=== PATIENT | female | born 1985 | race American Indian/Alaskan Native ===

== ENCOUNTER 2017-04-06 08:30 | Emergency (ER) | payer MEDICAID ==
[2017-04-06 09:00] VITALS: BP 253/168
[2017-04-06 10:19] LABS: Bilirubin,Urine NEG (Negative); Blood,Urine SM (Negative); Ketones,Urine TR mg/dL (Negative); Leukocyte Esterase,Urine NEG (Negative); Nitrite,Urine NEG (Negative); Urobilinogen,Urine < 2.0 mg/dL (<2.0)
[2017-04-06 10:20] LABS: Protein,Urine >500 mg/dL (Negative)
== END 2017-04-06 10:21 | disposition left against medical advice (07) ==
LOC: ED 08:30
DX: R10.9 Unspecified abdominal pain (principal); Z53.21 Procedure and treatment not carried out due to patient leaving prior to being seen by health care provider
CPT/HCPCS: 81001

== ENCOUNTER 2017-04-13 21:37 | Inpatient (IN) | payer MEDICAID ==
[2017-04-13 22:39] LABS: Basophils % (Auto) 0.2 % (0.0-1.8); Eosinophils % (Auto) 0.3 % (0.0-4.3); Hemoglobin 11.4 gm/dl (10.1-14.3); Mean Corpuscular HGB Conc 33 % (30-34); Mean Corpuscular Volume 73 fl (79-97); Platelet Count 168 K/mm3 (140-440); Red Blood Count 4.79 M/mm3 (3.65-5.03); Red Cell Distribution Width 18.6 % (13.2-15.2); White Blood Count 11.6 K/mm3 (4.5-11.0)
[2017-04-13 22:43] LABS: Mean Corpuscular Hemoglobin 24 pg (28-32)
[2017-04-13] MEDS ORDERED: NACL 0.9% 1000 ML 1,000 ML IV ONE (23:11)
[2017-04-13] MEDS ORDERED: MORPHINE IV ONE (23:11)
[2017-04-13] MEDS ORDERED: ZOFRAN IV ONE (23:11)
[2017-04-13 23:18] LABS: Albumin 3.7 g/dL (3.9-5); Albumin/Globulin Ratio 1.5 %; Bilirubin,Total 0.8 mg/dL (0.1-1.2); Calcium 8.7 mg/dL (8.4-10.2); Chloride 92.6 mmol/L (98-107); Potassium 3.1 mmol/L (3.6-5.0); Total Protein 6.2 g/dL (6.3-8.2)
[2017-04-14] MEDS ORDERED: LIDOCAINE VISCOUS 2% PO ONE (00:37)
[2017-04-14] MEDS ORDERED: MILK OF MAGNESIA PO ONE (00:37)
[2017-04-14] MEDS ORDERED: NACL 0.9% 1000 ML 1,000 ML IV ONE (02:45)
[2017-04-14] MEDS ORDERED: DILAUDID IV ONE (02:45)
--- NOTE | 2017-04-14 02:56 | Emergency Department Report ---
ED Abdominal Pain HPI - General Chief Complaint: Abdominal Pain Stated Complaint: ABDOMINAL PAIN Time Seen by Provider: 04/14/17 02:32 Source: patient, EMS Mode of arrival: Stretcher Limitations: No Limitations - History of Present Illness Initial Comments: 31 yo female who comes in today due to abdominal pain. She states that it has been present times one week. She admits to a history of colitis, and has seen GI in the past. She currently doesn't see GI. She states that the abdominal pain is periumbilical with radiation to the right groin/flank, 02/09, with associated nausea. MD Complaint: abdominal pain, flank pain -: week(s) (1) Location: periumbilical Radiation: RLQ, R flank Severity scale (0 -10): 10 Quality: aching, sharp Consistency: constant Improves With: nothing Worsens With: movement Context: other (none) Associated Symptoms: nausea - Related Data Previous Rx's Medication Instructions Recorded Last Taken Type Carvedilol [Coreg] 12.5 mg PO BID #60 tablet 08/12/15 Unknown Rx Losartan [Cozaar] 100 mg PO QDAY #30 tablet 08/12/15 Unknown Rx Tramadol HCl/Acetaminophen 1 each PO Q8H #30 tablet 08/12/15 Unknown Rx [Ultracet Tablet] hydrALAZINE [Apresoline TAB] 50 mg PO Q8HR #90 tablet 08/12/15 Unknown Rx metroNIDAZOLE [Flagyl] 500 mg PO Q8HR #15 tablet 08/12/15 Unknown Rx Allergies Allergy/AdvReac Type Severity Reaction Status Date / Time No Known Allergies Allergy Unverified 03/04/15 13:40 ED Review of Systems ROS: Stated complaint: ABDOMINAL PAIN Other details as noted in HPI Constitutional: malaise Eyes: denies: eye pain, eye discharge, vision change ENT: denies: ear pain, throat pain Respiratory: denies: cough, shortness of breath, wheezing Cardiovascular: denies: chest pain, palpitations Endocrine: no symptoms reported Gastrointestinal: as per HPI, abdominal pain Genitourinary: denies: urgency, dysuria, discharge Musculoskeletal: denies: back pain, joint swelling, arthralgia Skin: denies: rash, lesions Neurological: denies: headache, weakness, paresthesias Psychiatric: denies: anxiety, depression Hematological/Lymphatic: denies: easy bleeding, easy bruising ED Past Medical Hx - Past Medical History Previous Medical History?: Yes Hx Hypertension: Yes Hx CVA: No Hx Congestive Heart Failure: No Hx Diabetes: No Hx Asthma: Yes Hx COPD: No Additional medical history: colitis - Surgical History Past Surgical History?: Yes Hx Cholecystectomy: Yes (2011) Additional Surgical History: tubal ligation - Social History Smoking Status: Never Smoker Substance Use Type: None - Medications Home Medications: Home Medications Medication Instructions Recorded Confirmed Last Taken Type Carvedilol [Coreg] 12.5 mg PO BID #60 tablet 08/12/15 Unknown Rx Losartan [Cozaar] 100 mg PO QDAY #30 tablet 08/12/15 Unknown Rx Tramadol HCl/Acetaminophen 1 each PO Q8H #30 tablet 08/12/15 Unknown Rx [Ultracet Tablet] hydrALAZINE [Apresoline TAB] 50 mg PO Q8HR #90 tablet 08/12/15 Unknown Rx metroNIDAZOLE [Flagyl] 500 mg PO Q8HR #15 tablet 08/12/15 Unknown Rx ED Physical Exam - General Limitations: No Limitations General appearance: anxious - Head Head exam: Present: atraumatic, normocephalic - Eye Eye exam: Present: normal appearance - ENT ENT exam: Present: mucous membranes moist - Neck Neck exam: Present: normal inspection - Respiratory Respiratory exam: Present: normal lung sounds bilaterally. Absent: respiratory distress - Cardiovascular Cardiovascular Exam: Present: tachycardia - GI/Abdominal GI/Abdominal exam: Present: tenderness (periumbilical, with radiation to her right groin/flank ) - Rectal Rectal exam: Present: deferred - Extremities Exam Extremities exam: Present: normal inspection - Back Exam Back exam: Present: CVA tenderness (R) - Neurological Exam Neurological exam: Present: alert, oriented X3 - Psychiatric Psychiatric exam: Present: agitated, anxious - Skin Skin exam: Present: warm, dry, intact, normal color. Absent: rash ED Course Vital Signs 04/13/17 04/13/17 04/13/17 21:50 22:05 22:16 Temperature 97.4 F L Pulse Rate 123 H Respiratory 20 Rate Blood Pressure 256/162 Blood Pressure 270/179 [Right] O2 Sat by Pulse 99 96 97 Oximetry 04/13/17 04/13/17 04/13/17 22:30 22:46 23:00 Temperature Pulse Rate Respiratory Rate Blood Pressure 256/162 234/161 Blood Pressure [Right] O2 Sat by Pulse 100 100 100 Oximetry 04/13/17 04/13/17 04/13/17 23:16 23:30 23:46 Temperature Pulse Rate Respiratory Rate Blood Pressure Blood Pressure [Right] O2 Sat by Pulse 99 91 95 Oximetry 04/14/17 04/14/17 04/14/17 00:00 00:16 00:30 Temperature Pulse Rate Respiratory Rate Blood Pressure Blood Pressure [Right] O2 Sat by Pulse 93 100 96 Oximetry 04/14/17 04/14/17 04/14/17 00:46 01:00 01:16 Temperature Pulse Rate Respiratory Rate Blood Pressure 254/162 254/162 Blood Pressure [Right] O2 Sat by Pulse 100 99 97 Oximetry 04/14/17 04/14/17 04/14/17 01:30 01:46 02:00 Temperature Pulse Rate Respiratory Rate Blood Pressure 263/172 263/172 267/182 Blood Pressure [Right] O2 Sat by Pulse 96 99 91 Oximetry 04/14/17 04/14/17 04/14/17 03:44 04:02 04:16 Temperature Pulse Rate Respiratory 18 18 Rate Blood Pressure 267/182 Blood Pressure [Right] O2 Sat by Pulse 96 Oximetry 04/14/17 04:20 Temperature Pulse Rate 94 H Respiratory Rate Blood Pressure 267/182 Blood Pressure [Right] O2 Sat by Pulse Oximetry ED Medical Decision Making - Lab Data Result diagrams: 04/13/17 22:29 04/13/17 22:29 - Radiology Data Radiology results: report reviewed Enteritis per radiology. - Medical Decision Making Enteritis Acute renal failure Dehydration Hypokalemia Uncontrolled hypertension - Differential Diagnosis Enteritis, acute renal failure, dehydration, hypokalemia Critical care attestation.: If time is entered above; I have spent that time in minutes in the direct care of this critically ill patient, excluding procedure time. ED Disposition Clinical Impression: Acute renal failure, Dehydration, Enteritis, Hypokalemia, Hypertension Disposition: OP ADMIT IP TO THIS HOSP Is pt being admited?: Yes Does the pt Need Aspirin: No Condition: Stable Instructions: Abdominal Pain (ED), Hypertension (ED) Referrals: PRIMARY CARE, [Primary Care Provider] - 3-5 Days Time of Disposition: 04:54
[2017-04-14] MEDS: KCL 10MEQ/100ML 10 MEQ/100 ML BAG IV SCH ×2 (04:04→05:17)
--- NOTE | 2017-04-14 04:11 | Cat Scan Report ---
FINAL REPORT EXAM: CT ABDOMEN PELVIS WO CON HISTORY: abdominal pain TECHNIQUE: Routine axial imaging was obtained of the abdomen and pelvis without oral or IV contrast. Comparison is made to the study of 08/08/2015. FINDINGS: The lung bases are clear. Pleural fluid is not identified. The gallbladder has been removed. The biliary tree appears normal. The liver, pancreas, spleen, and adrenal glands appear normal. The kidneys show no evidence of stones or hydronephrosis. The bowel loops reveal a localized segment of small bowel in the left side of the pelvis with circumferential mucosal thickening. The bowel loop is not distended. There is no evidence of proximal bowel obstruction. The finding may represent localized enteritis. The appendix appears normal. There is no evidence of free fluid or adenopathy. In the pelvis the uterus and bladder appear normal. The skeletal structures do not show any acute changes. IMPRESSION: Localized segment of ilium in the left side of the pelvis with mucosal thickening. The findings compatible with a localized enteritis. No evidence of bowel obstruction. Cholecystectomy.
[2017-04-14] MEDS ORDERED: APRESOLINE IV ONE ×2 (04:15→04:47)
[2017-04-14 04:32] LABS: Bilirubin,Urine NEG (Negative); Blood,Urine SM (Negative); Ketones,Urine NEG (Negative); Leukocyte Esterase,Urine NEG (Negative); Mucus,Urine FEW /HPF; Nitrite,Urine NEG (Negative); Protein,Urine >500 mg/dL (Negative); Urobilinogen,Urine < 2.0 mg/dL (<2.0)
[2017-04-14] MEDS ORDERED: NORMODYNE 200 MG in D5W 160 ML IV ONE (05:48)
[2017-04-14] MEDS ORDERED: MILK OF MAGNESIA PO PRN (05:49)
[2017-04-14] MEDS ORDERED: DULCOLAX PR PRN (05:49)
[2017-04-14] MEDS ORDERED: TYLENOL PO PRN (05:49)
[2017-04-14] MEDS ORDERED: ZOFRAN IV PRN (05:49)
[2017-04-14] MEDS ORDERED: LEVAQUIN 500MG/100ML 500 MG/100 ML BAG IV ONE (06:00)
[2017-04-14] MEDS ORDERED: LEVAQUIN 500MG/100ML 500 MG/100 ML BAG IV SCH (06:00)
--- NOTE | 2017-04-14 06:03 | History and Physical Report ---
History of Present Illness Date of examination: 04/14/17 History of present illness: 31-year-old woman with a history of hypertension, asthma, colitis comes to emergency room with complaints of abdominal pain that started 1 week ago. Abdominal pain is located in the mid abdomen which she describes as a sharp pain , constant, intensity 7/10, radiating to the back, cannot identify exacerbating or relieving factors. She admits to nausea and vomiting 1 week, no diarrhea. She had menstrual flow to 1 week ago, then had 2 days of vaginal bleed 2 days ago. Review Of Systems: Constitutional: no weight loss Ears, eyes, nose, mouth and throat: no nasal congestion, no nasal discharge, no sinus pressure, blurry vision, diplopia Neck: No neck pain or rigidity. Cardiovascular: No chest pain, palpitations Respiratory: No shortness of breath, cough Gastrointestinal: No hematochezia Genitourinary : no dysuria, frequency , hematuria Musculoskeletal: no muscle ache Integumentary: no rash, no pruritis Neurological: no parathesias, focal weakness Endocrine: no cold or heat intolerance, no polyuria or polydipsia Hematologic/Lymphatic: no easy bruising, no easy bleeding, no gland swelling Allergic/Immunologic: no urticaria, no angioedema. PAST MEDICAL HISTORY:hypertension, asthma, colitis PAST SURGICAL HISTORY: Cholecystectomy, tubal ligation FAMILY HISTORY: Hypertension SOCIAL HISTORY: Denies tobacco, alcohol, drugs Medications and Allergies Allergies Allergy/AdvReac Type Severity Reaction Status Date / Time No Known Allergies Allergy Unverified 03/04/15 13:40 Home Medications Medication Instructions Recorded Confirmed Last Taken Type Carvedilol [Coreg] 12.5 mg PO BID #60 tablet 08/12/15 Unknown Rx Losartan [Cozaar] 100 mg PO QDAY #30 tablet 08/12/15 Unknown Rx Tramadol HCl/Acetaminophen 1 each PO Q8H #30 tablet 08/12/15 Unknown Rx [Ultracet Tablet] hydrALAZINE [Apresoline TAB] 50 mg PO Q8HR #90 tablet 08/12/15 Unknown Rx metroNIDAZOLE [Flagyl] 500 mg PO Q8HR #15 tablet 08/12/15 Unknown Rx Active Meds: Active Medications Acetaminophen (Tylenol) 650 mg PO Q4H PRN PRN Reason: Pain MILD(1-3)/Fever >100.5/RODRÍGUEZ Bisacodyl (Dulcolax) 10 mg [place] QDAY PRN PRN Reason: Constipation unrelieved by MOM Enoxaparin Sodium (Lovenox) 30 mg SUB-Q QDAY GIORGIO Sodium Chloride (Nacl 0.9% 1000 Ml) 1,000 mls @ 200 mls/hr IV ONCE ONE Stop: 04/14/17 09:42 Labetalol HCl 200 mg/ Dextrose 200 mls @ 120 mls/hr IV ONCE.ED ONE; 2 MG/MIN PRN Reason: Protocol Stop: 04/14/17 07:27 Sodium Chloride (Nacl 0.45% 1000 Ml) 1,000 mls @ 75 mls/hr IV DIRECT GIORGIO Levofloxacin/Dextrose (Levaquin 500mg/100ml) 500 mg in 100 mls @ 100 mls/hr IV Q24HR GIORGIO PRN Reason: Protocol Metronidazole (Flagyl 500 Mg/100 Ml) 500 mg in 100 mls @ 100 mls/hr IV Q8HR GI[facility] Magnesium Hydroxide (Milk Of Magnesia) 30 ml PO Q4H PRN PRN Reason: Constipation Morphine Sulfate (Morphine) 2 mg IV Q4H PRN PRN Reason: Pain, Moderate (4-6) Ondansetron HCl (Zofran) 4 mg IV Q8H PRN PRN Reason: N/V unrelieved by Reglan Exam - Physical Exam Narrative exam: Gen. appearance: Patient lying in bed in no acute distress HEENT: Normocephalic/atraumatic, pupils equal round reactive to light, extra occular movement intact, no scleral icterus, no JVD or thyromegaly or nodule, neck is supple, mucous membrane moist, no erythema or exudate Heart: S1-S2, regular rate and rhythm Lungs: Clear to auscultation bilateral breathing comfortable Abdomen: Positive bowel sounds, tender in the mid abdomen, nondistended, no organomegaly Extremities: No edema, cyanosis, clubbing Neuro:: Oriented 3 , cranial nerves II-12 intact, speech, motor intact Skin: No rash, nodules, warm dry - Constitutional Vitals: Temp Pulse Resp BP Pulse Ox 97.4 F L 138 H 18 216/130 96 04/13/17 21:50 04/14/17 05:14 04/14/17 04:16 04/14/17 05:14 04/14/17 05:00 Results - Labs CBC & Chem 7: 04/13/17 22:29 04/13/17 22:29 Labs: Abnormal lab results 04/13/17 04/13/17 04/14/17 Range/Units 22:29 22:29 03:00 WBC 11.6 H (4.5-11.0) K/mm3 MCV 73 L (79-97) fl MCH 24 L (28-32) pg RDW 18.6 H (13.2-15.2) % Lymph % (Auto) 5.5 L (13.4-35.0) % [place] % (Auto) 11.9 H (0.0-7.3) % Lymph # 0.6 L (1.2-5.4) K/mm3 [place] # 1.4 H (0.0-0.8) K/mm3 Seg Neutrophils % 82.1 H (40.0-70.0) % Seg Neutrophils # 9.5 H (1.8-7.7) K/mm3 Sodium 134 L (137-145) mmol/L Potassium 3.1 L (3.6-5.0) mmol/L Chloride 92.6 L (98-107) mmol/L BUN 34 H (7-17) mg/dL Creatinine 3.4 H (0.7-1.2) mg/dL Glucose 109 H (65-100) mg/dL C-Reactive Protein 2.60 H (0.00-1.30) mg/dL Total Protein 6.2 L (6.3-8.2) g/dL Albumin 3.7 L (3.9-5) g/dL - Imaging and Cardiology CT scan - abdomen: report reviewed CT scan - pelvis: report reviewed Assessment and Plan Assessment Hypertensive urgency Acute renal failure secondary to dehydration Enteritis Hypokalemia Asthma history of Colitis Plan Admit medicine Start IV fluids, labetalol drip Repeat potassium, consult critical care Start IV Flagyl, levaquin DVT prophylaxis
[2017-04-14] MEDS: FLAGYL 500 MG/100 ML 500 MG/100 ML BAG IV SCH ×3 (06:29→21:54)
[2017-04-14] MEDS: NACL 0.9% 1000 ML 1,000 ML IV ONE ×2 (06:55→07:16)
[2017-04-14] MEDS: NACL 0.45% 1000 ML 1,000 ML IV SCH (07:10)
[2017-04-14] MEDS ORDERED: APRESOLINE PO SCH ×2 (08:00)
[2017-04-14] MEDS: APRESOLINE PO SCH ×2 (08:45→18:31)
[2017-04-14] MEDS ORDERED: COZAAR PO SCH (10:00)
--- NOTE | 2017-04-14 10:05 | Consultation ---
History of Present Illness - Reason for Consult Consult date: 04/14/17 acute renal failure, hypokalemia - History of Present Illness The patient is a 31-year-old AAF with history significant for Obesity, Hypertension, Asthma and Colitis who came to the emergency room with complaints of abdominal pain that started aboit a week ago. Abdominal pain is located in the epigastric area, which is sharp, constant, intensity 7/10 and radiating to the back. She admit having nausea, vomiting and poor PO intake for the past week. Denies any diarrhea, fever, dizziness, dysuria, hematuria or jaundice. On admission her creatinine was 3.4. Her creatinine was 3.5 on 04/10/17 at [facility]. Her baseline creatinine is likely between 2.5 and 3. She had several admissions at [facility]. Currently she is not followed by any [employer]. Past History Past Medical History: hypertension Medications and Allergies Allergies Allergy/AdvReac Type Severity Reaction Status Date / Time No Known Allergies Allergy Unverified 03/04/15 13:40 Home Medications Medication Instructions Recorded Confirmed Last Taken Type Carvedilol [Coreg] 12.5 mg PO BID #60 tablet 08/12/15 Unknown Rx Losartan [Cozaar] 100 mg PO QDAY #30 tablet 08/12/15 Unknown Rx Tramadol HCl/Acetaminophen 1 each PO Q8H #30 tablet 08/12/15 Unknown Rx [Ultracet Tablet] hydrALAZINE [Apresoline TAB] 50 mg PO Q8HR #90 tablet 08/12/15 Unknown Rx metroNIDAZOLE [Flagyl] 500 mg PO Q8HR #15 tablet 08/12/15 Unknown Rx Active Meds: Active Medications Acetaminophen (Tylenol) 650 mg PO Q4H PRN PRN Reason: Pain MILD(1-3)/Fever >100.5/RODRÍGUEZ Bisacodyl (Dulcolax) 10 mg [place] QDAY PRN PRN Reason: Constipation unrelieved by MOM Carvedilol (Coreg) 12.5 mg PO BID GIORGIO Enoxaparin Sodium (Lovenox) 30 mg SUB-Q QDAY GIORGIO Hydralazine HCl (Apresoline) 100 mg PO Q8H GIORGIO Last Admin: 04/14/17 08:45 Dose: 100 mg Sodium Chloride (Nacl 0.45% 1000 Ml) 1,000 mls @ 75 mls/hr IV DIRECT GIORGIO Last Admin: 04/14/17 07:10 Dose: 75 mls/hr Metronidazole (Flagyl 500 Mg/100 Ml) 500 mg in 100 mls @ 100 mls/hr IV Q8HR [facility] Last Admin: 04/14/17 06:29 Dose: 100 mls/hr Levofloxacin/Dextrose (Levaquin 250mg/50ml) 250 mg in 50 mls @ 50 mls/hr IV Q24HR [facility] PRN Reason: Protocol Magnesium Hydroxide (Milk Of Magnesia) 30 ml PO Q4H PRN PRN Reason: Constipation Morphine Sulfate (Morphine) 2 mg IV Q4H PRN PRN Reason: Pain, Moderate (4-6) Ondansetron HCl (Zofran) 4 mg IV Q8H PRN PRN Reason: N/V unrelieved by Reglan Review of Systems Constitutional: anorexia, fatigue, poor appetite, no weight loss, no weight gain , no fever, no chills, no weakness Ears, nose, mouth and throat: no epistaxis Breasts: deferred Cardiovascular: high blood pressure, no chest pain, no orthopnea, no palpitations, no edema, no syncope, no lightheadedness, no shortness of breath, no leg edema Respiratory: no cough, no hemoptysis, no shortness of breath, no dyspnea on exertion Gastrointestinal: abdominal pain, nausea, vomiting, constipation, no diarrhea, no hematemesis, no BRBPR, no melena Genitourinary Female: no dysuria, no hematuria Rectal: no bleeding Musculoskeletal: no redness of joints, no hot joints Integumentary: no rash, no redness, no wounds, no jaundice Neurological: no paralysis, no weakness, no seizures, no syncope, no confusion, no memory loss, no paralysis Psychiatric: change in appetite Endocrine: no weight change Exam - Vital Signs Vital signs: Vital Signs Temp Pulse Resp BP Pulse Ox 97.4 F L 123 H 20 270/179 99 04/13/17 21:50 04/13/17 21:50 04/13/17 21:50 04/13/17 21:50 04/13/17 21:50 - General Appearance General appearance: well-developed, well-nourished, appears stated age, 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 Absent: tenderness , distended Integumentary: no rash, warm and dry Neurologic: no focal deficit, no asterixis, alert and oriented x3, CN 3-12 intact Musculoskeletal: Present: other (no edema) Psychiatric: mood/affect appropriate, cooperative Results - Lab Results 04/13/17 22:29 04/13/17 22:29 Most recent lab results Calcium 8.7 mg/dL (8.4-10.2) 04/13/17 22:29 Magnesium 1.70 mg/dL (1.7-2.3) 04/14/17 03:00 - Image Kidney/bladder ultrasound: other Assessment and Plan 1. Acute kidney injury: Hemodynamic RAGHAVENDRA in the setting of volume depletion. Received IV fluid boluses. Continue maintenance IV fluids. 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 Monitor renal function. 2. Volume depletion: Continue IV fluids. 3. Hypokalemia: Monitor and replete K. 4. Proteinuria: Urine protein quantification. FADI was negative in october 2016. Will check ANCA. 5. Hypertension.
[2017-04-14] MEDS: MORPHINE IV PRN ×3 (10:28→22:38)
[2017-04-14] MEDS: COREG PO SCH ×2 (11:54→21:53)
[2017-04-14] MEDS: LOVENOX SUB-Q SCH (12:36)
[2017-04-15] MEDS: APRESOLINE PO SCH ×3 (00:11→17:50)
[2017-04-15] MEDS: NACL 0.45% 1000 ML 1,000 ML IV SCH (04:18)
[2017-04-15] MEDS ORDERED: DILAUDID IV ONE (04:40)
[2017-04-15] MEDS: FLAGYL 500 MG/100 ML 500 MG/100 ML BAG IV SCH ×3 (05:49→21:31)
[2017-04-15 06:27] LABS: Basophils % (Auto) 0.5 % (0.0-1.8); Hematocrit 29.8 % (30.3-42.9); Hemoglobin 9.6 gm/dl (10.1-14.3); Mean Corpuscular HGB Conc 32 % (30-34); Mean Corpuscular Volume 74 fl (79-97); Platelet Count 175 K/mm3 (140-440); Red Blood Count 4.01 M/mm3 (3.65-5.03); Red Cell Distribution Width 18.6 % (13.2-15.2); White Blood Count 9.6 K/mm3 (4.5-11.0)
[2017-04-15 06:29] LABS: Mean Corpuscular Hemoglobin 24 pg (28-32)
[2017-04-15 06:49] LABS: Calcium 7.7 mg/dL (8.4-10.2); Chloride 96.9 mmol/L (98-107); Potassium 3.1 mmol/L (3.6-5.0)
--- NOTE | 2017-04-15 08:19 | Progress Note ---
Assessment and Plan 1. Acute kidney injury: Hemodynamic RAGHAVENDRA in the setting of volume depletion. Renal function is improving. Continue maintenance IV fluids. CKD stage 3-4. Monitor renal function. 2. Volume depletion: Continue IV fluids. 3. Hypokalemia: Monitor and replete K. 4. Proteinuria: Urine protein quantification. FADI was negative in october 2016. ANCA ordered. 5. Hypertension: Amlodipine added. Explained that she need outpatient Renal follow up. Subjective Date of service: 04/15/17 Interval history: Patient is feeling better today. Objective - Vital Signs Vital signs: Vital Signs - 12hr 04/14/17 04/14/17 04/14/17 21:53 21:58 23:39 Temperature 98.4 F Pulse Rate 113 H 113 H Respiratory 18 Rate Blood Pressure 167/98 168/104 O2 Sat by Pulse 98 97 Oximetry 04/15/17 07:39 Temperature 97.8 F Pulse Rate 105 H Respiratory 20 Rate Blood Pressure 179/113 O2 Sat by Pulse 97 Oximetry - General Appearance General appearance: well-developed, well-nourished, appears stated age, obese, other (no distress) EENT: ATNC, PERRL, mucous membranes dry, hearing intact, vision intact Neck: no JVD, supple Respiratory: Present: Clear to Ascultation Cardiology: regular, S1S2, no murmurs Gastrointestinal: normoactive bowel sounds, no tenderness, no distended, obese Integumentary: no rash, warm and dry Neurologic: no focal deficit, no asterixis, alert and oriented x3 Musculoskeletal: other (no edema) Psychiatric: mood/affect appropriate, cooperative - Lab 04/15/17 05:18 04/15/17 05:18 Most recent lab results Calcium 7.7 mg/dL (8.4-10.2) L 04/15/17 05:18 Magnesium 1.70 mg/dL (1.7-2.3) 04/14/17 03:00
[2017-04-15] MEDS ORDERED: DILAUDID IV PRN (08:49)
--- NOTE | 2017-04-15 08:49 | Progress Note ---
Assessment and Plan Assessment and plan: 31-year-old woman with a history of hypertension, asthma, colitis comes to emergency room with complaints of abdominal pain that started 1 week ago. Abdominal pain is located in the mid abdomen which she describes as a sharp pain , constant, intensity 7/10, radiating to the back, cannot identify exacerbating or relieving factors. She admits to nausea and vomiting 1 week, no diarrhea. She had menstrual flow to 1 week ago, then had 2 days of vaginal bleed 2 days ago. Peritoneal irritation likely secondary to arthritis * Continue pain control, just a different medication patient reports that morphine is not given her relief. * Obtain GI evaluation * We'll also request an ANCA, Immunological studies Intractable nausea vomiting * Continue Zofran. Acute kidney injury on chronic kidney disease stage III * Nephrology input noted we'll continue to hold losartan also advised the patient against this medication at this time. * Per review of records from [facility] it appears the patient's baseline is around 3 range for creatinine per utility person Hypokalemia * Replace Anemia likely microcytic * Recommend iron replacement therapies if no other pathology is noted. Hypertensive urgency * Hydralazine increased 100 mg 3 times a day Will change from Coreg to metoprolol for better rate control also and 50 mg twice a day and will add Norvasc. Losartan has been discontinued DVT and GI prophylaxis. History Interval history: The patient' seen and examined this morning still with intermittent abdominal pain.. She reports she was able to keep it clear liquids diets down yesterday but had not been able to eat for 7 days. Per the patient she previously had a plan GI evaluation but this was not done due to blood pressure issues. She continues to rate her pain 7/10 in intensity with no aggravating or alleviating factors. She denies any further nausea today. She denies any fever. She states that the morphine is not sustaining her. Hospitalist Physical - Physical exam Narrative exam: VITAL SIGNS: Reviewed. GENERAL: The patient appeared well nourished and normally developed. Vital signs as documented. HEAD: No signs of head trauma. EYES: Pupils are equal. Extraocular motions intact. EARS: Hearing grossly intact. MOUTH: Oropharynx is normal. NECK: No adenopathy, no JVD. CHEST: Chest with clear breath sounds bilaterally. No wheezes, rales, or rhonchi. CARDIAC: Regular rate and rhythm. S1 and S2, without murmurs, gallops, or rubs. VASCULAR: No Edema. Peripheral pulses normal and equal in all extremities. ABDOMEN: Soft, tender. No sign of distention. No rebound or guarding, and no masses palpated. Bowel Sounds normal. MUSCULOSKELETAL: Good range of motion of all major joints. Extremities without clubbing, cyanosis or edema. NEUROLOGIC EXAM: Alert and oriented x 3. No focal sensory or strength deficits. Speech normal. Follows commands. PSYCHIATRIC: Mood normal. SKIN: No rash or lesions. - Constitutional Vitals: Temp Pulse Resp BP Pulse Ox 97.8 F 105 H 20 179/113 100 04/15/17 07:39 04/15/17 07:39 04/15/17 07:39 04/15/17 07:39 04/15/17 08:31 Results - Labs CBC & Chem 7: 04/15/17 05:18 04/15/17 05:18 Labs: Laboratory Last Values WBC 9.6 K/mm3 (4.5-11.0) 04/15/17 05:18 RBC 4.01 M/mm3 (3.65-5.03) 04/15/17 05:18 Hgb 9.6 gm/dl (10.1-14.3) L 04/15/17 05:18 Hct 29.8 % (30.3-42.9) L 04/15/17 05:18 MCV 74 fl (79-97) L 04/15/17 05:18 MCH 24 pg (28-32) L 04/15/17 05:18 MCHC 32 % (30-34) 04/15/17 05:18 RDW 18.6 % (13.2-15.2) H 04/15/17 05:18 Plt Count 175 K/mm3 (140-440) 04/15/17 05:18 Lymph % (Auto) 8.0 % (13.4-35.0) L 04/15/17 05:18 [place] % (Auto) 11.8 % (0.0-7.3) H 04/15/17 05:18 Eos % (Auto) 2.0 % (0.0-4.3) 04/15/17 05:18 Baso % (Auto) 0.5 % (0.0-1.8) 04/15/17 05:18 Lymph # 0.8 K/mm3 (1.2-5.4) L 04/15/17 05:18 [place] # 1.1 K/mm3 (0.0-0.8) H 04/15/17 05:18 Eos # 0.2 K/mm3 (0.0-0.4) 04/15/17 05:18 Baso # 0.1 K/mm3 (0.0-0.1) 04/15/17 05:18 Seg Neutrophils % 77.7 % (40.0-70.0) H 04/15/17 05:18 Seg Neutrophils # 7.5 K/mm3 (1.8-7.7) 04/15/17 05:18 ESR 21 mm/Hr (0-20) 04/14/17 03:00 Sodium 134 mmol/L (137-145) L 04/15/17 05:18 Potassium 3.1 mmol/L (3.6-5.0) L 04/15/17 05:18 Chloride 96.9 mmol/L (98-107) L 04/15/17 05:18 Carbon Dioxide 24 mmol/L (22-30) 04/15/17 05:18 Anion Gap 16 mmol/L 04/15/17 05:18 BUN 27 mg/dL (7-17) H 04/15/17 05:18 Creatinine 3.0 mg/dL (0.7-1.2) H 04/15/17 05:18 Estimated GFR 22 ml/min 04/15/17 05:18 BUN/Creatinine Ratio 9 % 04/15/17 05:18 Glucose 94 mg/dL (65-100) 04/15/17 05:18 Calcium 7.7 mg/dL (8.4-10.2) L 04/15/17 05:18 Magnesium 1.70 mg/dL (1.7-2.3) 04/14/17 03:00 Total Bilirubin 0.80 mg/dL (0.1-1.2) 04/13/17 22:29 AST 12 units/L (5-40) 04/13/17 22:29 ALT 9 units/L (7-56) 04/13/17 22:29 Alkaline Phosphatase 93 units/L (35-129) 04/13/17 22:29 Total Creatine Kinase 16 units/L (30-135) L 04/15/17 05:18 C-Reactive Protein 2.60 mg/dL (0.00-1.30) H 04/14/17 03:00 Total Protein 6.2 g/dL (6.3-8.2) L 04/13/17 22:29 Albumin 3.7 g/dL (3.9-5) L 04/13/17 22:29 Albumin/Globulin Ratio 1.5 % 04/13/17 22:29 Lipase 41 units/L (13-60) 04/13/17 22:29 Urine Color Yellow (Yellow) 04/14/17 04:11 Urine Turbidity Clear (Clear) 04/14/17 04:11 Urine pH 6.0 (5.0-7.0) 04/14/17 04:11 Ur Specific [place] 1.011 (1.003-1.030) 04/14/17 04:11 Urine Protein >500 mg/dL (Negative) 04/14/17 04:11 Urine Glucose (UA) Neg mg/dL (Negative) 04/14/17 04:11 Urine Ketones Neg mg/dL (Negative) 04/14/17 04:11 Urine Blood Sm (Negative) 04/14/17 04:11 Urine Nitrite Neg (Negative) 04/14/17 04:11 Urine Bilirubin Neg (Negative) 04/14/17 04:11 Urine Urobilinogen < 2.0 mg/dL (<2.0) 04/14/17 04:11 Ur Leukocyte Esterase Neg (Negative) 04/14/17 04:11 Urine WBC (Auto) 2.0 /HPF (0.0-6.0) 04/14/17 04:11 Urine RBC (Auto) 8.0 /HPF (0.0-6.0) 04/14/17 04:11 U Epithel Cells (Auto) 1.0 /HPF (0-13.0) 04/14/17 04:11 Urine Mucus Few /HPF 04/14/17 04:11 - Imaging and Cardiology CT scan - abdomen: image reviewed (enteritis)
[2017-04-15] MEDS ORDERED: K-DUR PO ONE (09:00)
[2017-04-15] MEDS: LEVAQUIN 250MG/50ML 250 MG/50 ML BAG IV SCH (09:06)
[2017-04-15] MEDS: LOVENOX SUB-Q SCH (09:06)
[2017-04-15] MEDS: LOPRESSOR PO SCH ×2 (09:07→21:31)
[2017-04-15] MEDS: NORVASC PO SCH (09:07)
[2017-04-15 10:08] LABS: Bilirubin,Urine NEG (Negative); Blood,Urine NEG (Negative); Ketones,Urine NEG (Negative); Leukocyte Esterase,Urine NEG (Negative); Mucus,Urine FEW /HPF; Nitrite,Urine NEG (Negative); Urobilinogen,Urine < 2.0 mg/dL (<2.0)
--- NOTE | 2017-04-15 10:09 | Gastroenterology Consultation ---
History of Present Illness - Reason for Consult Consult date: 04/15/[address] scan, unexplained abdominal pain and weight loss Requesting physician: CEE DOMINGUEZ - History of Present Illness The patient is a 31 year old female for whom consultation was requested for chronic, recurrent abdominal pain and a reported weight loss of 70 pounds over about 7 months. She was admitted to [place] earlier this year and underwent EGD revealing mild gastritis. She reports being told of "colitis" and has been treated with prednisone, although does recall the treating physician. The patient has chronic constipation and never diarrhea or any bleeding. Pain and weight loss have been in part attributed to severe social stresses in the past year. A CT scan this admission revealed thickening of the distal ileum. Past History Past Medical History: hypertension, other (renal insufficiency) Past Surgical History: No surgical history Social history: no significant social history Family history: no significant family history Medications and Allergies Allergies Allergy/AdvReac Type Severity Reaction Status Date / Time No Known Allergies Allergy Unverified 03/04/15 13:40 Home Medications Medication Instructions Recorded Confirmed Last Taken Type Tramadol HCl/Acetaminophen 1 each PO Q8H #30 tablet 08/12/15 04/14/17 Unknown Rx [Ultracet Tablet] Carvedilol [Coreg] 25 mg PO BID 04/14/17 04/14/17 Unknown History Ciprofloxacin HCl [Cipro] 500 mg PO Q12H 04/14/17 04/14/17 Unknown History amLODIPine [Norvasc] 10 mg PO DAILY 04/14/17 04/14/17 Unknown History hydrALAZINE [Apresoline TAB] 25 mg PO TID 04/14/17 04/14/17 Unknown History predniSONE [Deltasone] 20 mg PO DAILY 04/14/17 04/14/17 Unknown History Active Meds: Active Medications Acetaminophen (Tylenol) 650 mg PO Q4H PRN PRN Reason: Pain MILD(1-3)/Fever >100.5/RODRÍGUEZ Amlodipine Besylate (Norvasc) 5 mg PO QDAY [facility] Last Admin: 04/15/17 09:07 Dose: 5 mg Bisacodyl (Dulcolax) 10 mg [place] QDAY PRN PRN Reason: Constipation unrelieved by MOM Hydralazine HCl (Apresoline) 100 mg PO Q8H [facility] Last Admin: 04/15/17 09:13 Dose: 100 mg Hydromorphone HCl (Dilaudid) 1 mg IV Q3H PRN PRN Reason: Pain , Severe (7-10) Sodium Chloride (Nacl 0.45% 1000 Ml) 1,000 mls @ 75 mls/hr IV DIRECT [facility] Last Admin: 04/15/17 04:18 Dose: 75 mls/hr Metronidazole (Flagyl 500 Mg/100 Ml) 500 mg in 100 mls @ 100 mls/hr IV Q8HR [facility] Last Admin: 04/15/17 05:49 Dose: 100 mls/hr Levofloxacin/Dextrose (Levaquin 250mg/50ml) 250 mg in 50 mls @ 50 mls/hr IV Q24HR [facility] PRN Reason: Protocol Last Admin: 04/15/17 09:06 Dose: 50 mls/hr Magnesium Hydroxide (Milk Of Magnesia) 30 ml PO Q4H PRN PRN Reason: Constipation Metoprolol Tartrate (Lopressor) 50 mg PO BID [facility] Last Admin: 04/15/17 09:07 Dose: 50 mg Morphine Sulfate (Morphine) 2 mg IV Q4H PRN PRN Reason: Pain, Moderate (4-6) Last Admin: 04/14/17 22:38 Dose: 2 mg Ondansetron HCl (Zofran) 4 mg IV Q8H PRN PRN Reason: N/V unrelieved by Regmarie Review of Systems - Review of Systems Constitutional: weight loss, no fever, no chills Eyes: no change in vision Ears, Nose, Throat: no decreased hearing, no epistaxis Breasts: deferred Cardiovascular: edema, no chest pain, no shortness of breath Respiratory: no cough, no shortness of breath, no wheezing Gastrointestinal: abdominal pain, nausea, vomiting, constipation, no diarrhea, no change in bowel habits, no BRBPR, no melena, no hematochezia Rectal: no pain Female Genitourinary: deferred Musculoskeletal: no gait dysfunction, no joint pain, no muscle pain Integumentary: no rash, no pruritis, no jaundice Neurological: no head injury, no paralysis, no weakness, no memory loss Psychiatric: anxiety, change in appetite, no change in sleep habits Endocrine: no cold intolerance, no heat intolerance Hematologic/Lymphatic: no easy bruising, no easy bleeding, no lymphadenopathy Allergic/Immunologic: angioedema, no wheezing Exam - Constitutional Vital Signs: Temp Pulse Resp BP Pulse Ox 97.8 F 105 H 20 179/113 100 04/15/17 07:39 04/15/17 07:39 04/15/17 07:39 04/15/17 07:39 04/15/17 08:31 General appearance: no acute distress, well-nourished, other (obese) - EENT Eyes: PERRL ENT: hearing intact, clear oral mucosa, dentition normal - Neck Neck: supple, normal ROM, no masses or JVD - Respiratory Respiratory effort: normal Respiratory: bilateral: CTA - Breasts Breasts: deferred - Cardiovascular Rhythm: regular - Gastrointestinal General gastrointestinal: Present: soft, tender (diffuse tenderness without rebound or guarding.), non-distended, normal bowel sounds. Absent: hepatomegaly , splenomegaly, mass Rectal Exam: deferred - Genitourinary Female Genitourinary: deferred - Integumentary Integumentary: Present: clear, warm, dry - Neurologic Neurological: alert and oriented x3 - Psychiatric Psychiatric: appropriate mood/affect, intact judgment & insight, memory intact - Labs CBC & Chem 7: 04/15/17 05:18 04/15/17 05:18 Lab Results: Laboratory Results - last 24 hr 04/15/17 04/15/17 05:18 05:18 WBC 9.6 RBC 4.01 Hgb 9.6 L Hct 29.8 L MCV 74 L MCH 24 L MCHC 32 RDW 18.6 H Plt Count 175 Lymph % (Auto) 8.0 L [place] % (Auto) 11.8 H Eos % (Auto) 2.0 Baso % (Auto) 0.5 Lymph # 0.8 L [place] # 1.1 H Eos # 0.2 Baso # 0.1 Seg Neutrophils % 77.7 H Seg Neutrophils # 7.5 Sodium 134 L Potassium 3.1 L Chloride 96.9 L Carbon Dioxide 24 Anion Gap 16 BUN 27 H Creatinine 3.0 H Estimated GFR 22 BUN/Creatinine Ratio 9 Glucose 94 Calcium 7.7 L Total Creatine Kinase 16 L - Imaging CT Scan: report reviewed, image reviewed Assessment and Plan - Patient Problems (1) Acute renal failure Current Visit: Yes Status: Acute (2) Enteritis Current Visit: Yes Status: Acute Plan to address problem: Possible Crohn's disease on CT although sed rate is not impressive. Needs colonoscopy and, if negative, a small bowel series. Colonoscopy scheduled for tomorrow. Thank you for asking us to see her in consultation. (3) Hypertension Current Visit: Yes Status: Acute (4) Abdominal pain Current Visit: No Status: Acute
[2017-04-15] MEDS: DILAUDID IV PRN ×3 (10:25→21:29)
[2017-04-15] MEDS ORDERED: GOLYTELY PO SCH (16:00)
[2017-04-16] MEDS: APRESOLINE PO SCH ×3 (02:16→16:50)
[2017-04-16] MEDS: DILAUDID IV PRN ×4 (02:20→19:15)
[2017-04-16] MEDS: NACL 0.45% 1000 ML 1,000 ML IV SCH ×2 (02:21→11:23)
[2017-04-16] MEDS: FLAGYL 500 MG/100 ML 500 MG/100 ML BAG IV SCH ×3 (05:37→21:35)
[2017-04-16 06:10] LABS: Calcium 8.1 mg/dL (8.4-10.2); Chloride 101.4 mmol/L (98-107); Magnesium 1.9 mg/dL (1.7-2.3); Potassium 3.4 mmol/L (3.6-5.0)
[2017-04-16] MEDS ORDERED: WATER FOR IRRIG STERILE ONE (07:47)
[2017-04-16] MEDS ORDERED: WATER FOR IRRIG STERILE IR ONE (07:47)
[2017-04-16] MEDS ORDERED: INFANTS' GAS RELIEF PO ONE (07:50)
[2017-04-16] MEDS ORDERED: NACL 0.9% 1000 ML 1,000 ML ONE (07:53)
[2017-04-16] MEDS ORDERED: DIPRIVAN 10 MG/ML IV ONE ×2 (08:07)
[2017-04-16] MEDS ORDERED: LOPRESSOR PO SCH (08:10)
[2017-04-16] MEDS ORDERED: MAGNESIUM SULFATE IV ONE (08:14)
--- NOTE | 2017-04-16 08:15 | Progress Note ---
Assessment and Plan Assessment and plan: 31-year-old woman with a history of hypertension, asthma, colitis comes to emergency room with complaints of abdominal pain that started 1 week ago. Abdominal pain is located in the mid abdomen which she describes as a sharp pain , constant, intensity 7/10, radiating to the back, cannot identify exacerbating or relieving factors. She admits to nausea and vomiting 1 week, no diarrhea. She had menstrual flow to 1 week ago, then had 2 days of vaginal bleed 2 days ago. Peritoneal irritation likely secondary to arthritis * Continue pain control, just a different medication patient reports that morphine is not given her relief. * GI planned for colonsocopy today and if negative will do a SBS * We'll also request an ANCA, Immunological studies Intractable nausea vomiting * Continue Zofran. Acute kidney injury on chronic kidney disease stage III * Nephrology input noted we'll continue to hold losartan also advised the patient against this medication at this time. * Per review of records from [facility] it appears the patient's baseline is around 2.5-3 range for creatinine per business operations analyst Hypokalemia/Hypomagenesemia * Replace, And also replace magnesium Anemia likely microcytic * Recommend iron replacement therapies if no other pathology is noted. Hypertensive urgency * Hydralazine increased 100 mg 3 times a day * Considering Sinus tachycardia and Continue Increased BP, Coreg was changed to Metoprolol and will increase the later to 100mg po bid * Losartan has been discontinued and will be restarted by Nephrology outpatient if renal function remains stable * Continue norvasc DVT and GI prophylaxis. History Interval history: The patient' seen and examined this morning still with intermittent abdominal pain. Reports mild improvement. she is for colonoscopy today Hospitalist Physical - Physical exam Narrative exam: VITAL SIGNS: Reviewed. GENERAL: The patient appeared well nourished and normally developed. Vital signs as documented. HEAD: No signs of head trauma. EYES: Pupils are equal. Extraocular motions intact. EARS: Hearing grossly intact. MOUTH: Oropharynx is normal. NECK: No adenopathy, no JVD. CHEST: Chest with clear breath sounds bilaterally. No wheezes, rales, or rhonchi. CARDIAC: Regular rate and rhythm. S1 and S2, without murmurs, gallops, or rubs. VASCULAR: No Edema. Peripheral pulses normal and equal in all extremities. ABDOMEN: Soft, tender. No sign of distention. No rebound or guarding, and no masses palpated. Bowel Sounds normal. MUSCULOSKELETAL: Good range of motion of all major joints. Extremities without clubbing, cyanosis or edema. NEUROLOGIC EXAM: Alert and oriented x 3. No focal sensory or strength deficits. Speech normal. Follows commands. PSYCHIATRIC: Mood normal. SKIN: No rash or lesions. - Constitutional Vitals: Temp Pulse Resp BP Pulse Ox 98.6 F 98 H 15 191/117 95 04/16/17 08:08 04/16/17 08:08 04/16/17 08:08 04/16/17 08:08 04/16/17 08:08 Results - Labs CBC & Chem 7: 04/15/17 05:18 04/16/17 05:01 Labs: Laboratory Last Values WBC 9.6 K/mm3 (4.5-11.0) 04/15/17 05:18 RBC 4.01 M/mm3 (3.65-5.03) 04/15/17 05:18 Hgb 9.6 gm/dl (10.1-14.3) L 04/15/17 05:18 Hct 29.8 % (30.3-42.9) L 04/15/17 05:18 MCV 74 fl (79-97) L 04/15/17 05:18 MCH 24 pg (28-32) L 04/15/17 05:18 MCHC 32 % (30-34) 04/15/17 05:18 RDW 18.6 % (13.2-15.2) H 04/15/17 05:18 Plt Count 175 K/mm3 (140-440) 04/15/17 05:18 Lymph % (Auto) 8.0 % (13.4-35.0) L 04/15/17 05:18 [place] % (Auto) 11.8 % (0.0-7.3) H 04/15/17 05:18 Eos % (Auto) 2.0 % (0.0-4.3) 04/15/17 05:18 Baso % (Auto) 0.5 % (0.0-1.8) 04/15/17 05:18 Lymph # 0.8 K/mm3 (1.2-5.4) L 04/15/17 05:18 [place] # 1.1 K/mm3 (0.0-0.8) H 04/15/17 05:18 Eos # 0.2 K/mm3 (0.0-0.4) 04/15/17 05:18 Baso # 0.1 K/mm3 (0.0-0.1) 04/15/17 05:18 Seg Neutrophils % 77.7 % (40.0-70.0) H 04/15/17 05:18 Seg Neutrophils # 7.5 K/mm3 (1.8-7.7) 04/15/17 05:18 ESR 21 mm/Hr (0-20) 04/14/17 03:00 Sodium 140 mmol/L (137-145) 04/16/17 05:01 Potassium 3.4 mmol/L (3.6-5.0) L 04/16/17 05:01 Chloride 101.4 mmol/L (98-107) 04/16/17 05:01 Carbon Dioxide 25 mmol/L (22-30) 04/16/17 05:01 Anion Gap 17 mmol/L 04/16/17 05:01 BUN 21 mg/dL (7-17) H 04/16/17 05:01 Creatinine 3.1 mg/dL (0.7-1.2) H 04/16/17 05:01 Estimated GFR 21 ml/min 04/16/17 05:01 BUN/Creatinine Ratio 7 % 04/16/17 05:01 Glucose 88 mg/dL (65-100) 04/16/17 05:01 Calcium 8.1 mg/dL (8.4-10.2) L 04/16/17 05:01 Magnesium 1.90 mg/dL (1.7-2.3) 04/16/17 05:01 Total Bilirubin 0.80 mg/dL (0.1-1.2) 04/13/17 22:29 AST 12 units/L (5-40) 04/13/17 22:29 ALT 9 units/L (7-56) 04/13/17 22:29 Alkaline Phosphatase 93 units/L (35-129) 04/13/17 22:29 Total Creatine Kinase 16 units/L (30-135) L 04/15/17 05:18 C-Reactive Protein 2.60 mg/dL (0.00-1.30) H 04/14/17 03:00 Total Protein 6.2 g/dL (6.3-8.2) L 04/13/17 22:29 Albumin 3.7 g/dL (3.9-5) L 04/13/17 22:29 Albumin/Globulin Ratio 1.5 % 04/13/17 22:29 Lipase 41 units/L (13-60) 04/13/17 22:29 Urine Color Straw (Yellow) 04/15/17 Unknown Urine Turbidity Clear (Clear) 04/15/17 Unknown Urine pH 6.0 (5.0-7.0) 04/15/17 Unknown Ur Specific [place] 1.005 (1.003-1.030) 04/15/17 Unknown Urine Protein 100 mg/dl mg/dL (Negative) 04/15/17 Unknown Urine Glucose (UA) Neg mg/dL (Negative) 04/15/17 Unknown Urine Ketones Neg mg/dL (Negative) 04/15/17 Unknown Urine Blood Neg (Negative) 04/15/17 Unknown Urine Nitrite Neg (Negative) 04/15/17 Unknown Urine Bilirubin Neg (Negative) 04/15/17 Unknown Urine Urobilinogen < 2.0 mg/dL (<2.0) 04/15/17 Unknown Ur Leukocyte Esterase Neg (Negative) 04/15/17 Unknown Urine WBC (Auto) 1.0 /HPF (0.0-6.0) 04/15/17 Unknown Urine RBC (Auto) 1.0 /HPF (0.0-6.0) 04/15/17 Unknown U Epithel Cells (Auto) 1.0 /HPF (0-13.0) 04/15/17 Unknown Urine Mucus Few /HPF 04/15/17 Unknown Urine Creatinine 43.9 mg/dL (0.1-20.0) H 04/15/17 09:29 Protein/Creatinin Ratio 1.37 04/15/17 09:29 Urine Sodium 30 mmol/L 04/15/17 09:29 Urine Total Protein 60 mg/dL (5-11.8) H 04/15/17 09:29 - Imaging and Cardiology Abdominal x-ray: image reviewed
--- NOTE | 2017-04-16 08:15 | Anesthesia Consultation ---
Anesthesia Consult and Med Hx Date of service: 04/16/17 - Airway Anesthetic Teeth Evaluation: Good ROM Head & Neck: Adequate Mental/Hyoid Distance: Adequate Mallampati Class: Class II Intubation Access Assessment: Probably Good - Pulmonary Exam CTA: Yes - Cardiac Exam Cardiac Exam: RRR - Pre-Operative Health Status ASA Pre-Surgery Classification: ASA3 Proposed Anesthetic Plan: General - Pulmonary Hx Smoking: Yes Hx Asthma: Yes COPD: No Hx Pneumonia: No - Cardiovascular System Hx Hypertension: Yes - Endocrine Hx End Stage Renal Disease: No - Other Systems Hx Cancer: No Hx Obesity: Yes
--- NOTE | 2017-04-16 08:15 | Anesthesia Day of Surgery ---
Anesthesia Day of Surgery - Day of Surgery Patient Examined: Yes Patient H&P Reviewed: Yes Patient is NPO: Yes Beta Blockers: Yes
[2017-04-16 08:43] LABS: Iron 20 ug/dL (37-170); Total Iron Binding Capacity 170 mcg/dL (250-450)
[2017-04-16] MEDS ORDERED: NORMODYNE IV ONE (09:10)
--- NOTE | 2017-04-16 09:12 | Operative Report ---
Operative Report Operative Report: Date of procedure: 04/16/2017 Preprocedure diagnosis: Chronic abdominal pain, abnormal CT with thickening of the distal small bowel. History of weight loss. Rule out Crohn's Post procedure diagnosis: Normal colon and distal terminal ileum. Suboptimal prep.] Procedure: Colonoscopy to the cecum Endoscopist: Dr. Alvarado Anesthesia: Monitored anesthesia care per anesthesia department Estimated blood loss: 0 Medications: Monitored anesthesia care. See separate report by anesthesia for details. After careful discussion of the nature and purpose of the procedure as well as details of the technique risks benefits and alternatives the patient gave consent. Please see recent history and physical from the office. The patient was placed in the left lateral decubitus position and medicated per anesthesia. A rectal exam was performed sphincter tone was normal there were no masses palpable. The MedEncentiven 570 scope was passed transanally and advanced under continuous direct vision without difficulty to the cecum. The colon prep was only fair with there being thick liquid stool requiring lavage and cervical areas. The cecum was normal. The ileocecal valve appeared normal. Scope was passed through the ileocecal valve and the distal 5 cm of ileum inspected which appeared normal. The ascending colon was normal and on forward and retroflexed views. The transverse colon, descending colon, and sigmoid colon were normal. The rectum was normal on forward and retroflexed views. The procedure was well- tolerated overall and the patient was observed in recovery. Conclusions: Normal colonoscopy to the cecum and terminal ileum. Suboptimal prep. No evidence of Crohn's disease. Plan: Small bowel series. Signed electronically: Socrates Alvarado M.D.
--- NOTE | 2017-04-16 09:18 | Post Anesthesia Evaluation ---
- Post Anesthesia Evaluation Patient Participated: Yes Airway Patent: Yes Stable Respiratory Function: Yes Nausea/Vomiting: No Temp > 96.8F: Yes Pain Manageable: Yes Adequeate Hydration: Yes Anesthesia Complications: No Block Receding Appropriately: Not Applicable Patient on Ventilator: No
[2017-04-16] MEDS ORDERED: K-DUR PO ONE (10:00)
[2017-04-16] MEDS ORDERED: MAGNESIUM SULFATE 1 GM in NACL 0.9% 50 ML IV ONE (10:00)
--- NOTE | 2017-04-16 10:14 | Progress Note ---
Assessment and Plan 1. Acute kidney injury: Hemodynamic RAGHAVENDRA in the setting of volume depletion. Renal function is improving. Likely CKD stage 4. Monitor renal function. 2. Volume depletion: Continue IV fluids. 3. Hypokalemia: Monitor and replete K. 4. Proteinuria: FADI was negative in october 2016. ANCA negative. 5. Hypertension: Monitor BP. Follow up with me in 1 week. Subjective Date of service: 04/16/17 Interval history: Patient is doing ok. Objective - Vital Signs Vital signs: Vital Signs - 12hr 04/16/17 04/16/17 04/16/17 07:44 08:08 08:11 Temperature 98.2 F 98.6 F 98.6 F Pulse Rate 93 H 98 H 98 H Respiratory 20 15 15 Rate Blood Pressure 162/90 191/117 191/117 O2 Sat by Pulse 99 95 95 Oximetry 04/16/17 04/16/17 04/16/17 09:08 09:23 09:55 Temperature 98.2 F Pulse Rate 96 H 93 H 96 H Respiratory 20 15 17 Rate Blood Pressure 171/116 189/112 174/100 O2 Sat by Pulse 95 95 97 Oximetry - General Appearance General appearance: well-developed, well-nourished, appears stated age, obese, other (Electrical & Instrumentation Supervisor present, no distress) EENT: ATNC, PERRL, mucous membranes moist, hearing intact, vision intact Neck: supple Respiratory: Present: Clear to Ascultation Cardiology: regular, S1S2, no murmurs Gastrointestinal: normoactive bowel sounds, no tenderness, no distended Integumentary: no rash, warm and dry Neurologic: no focal deficit, no asterixis, alert and oriented x3, CN 3-12 intact Musculoskeletal: other (no distress) Psychiatric: mood/affect appropriate, cooperative - Lab 04/15/17 05:18 04/17/17 04:47 Most recent lab results Calcium 8.1 mg/dL (8.4-10.2) L 04/16/17 05:01 Magnesium 1.90 mg/dL (1.7-2.3) 04/16/17 05:01 Urine Creatinine 43.9 mg/dL (0.1-20.0) H 04/15/17 09:29 Urine Sodium 30 mmol/L 04/15/17 09:29 Urine Total Protein 60 mg/dL (5-11.8) H 04/15/17 09:29
[2017-04-16] MEDS: LOPRESSOR PO SCH ×2 (11:06→21:35)
[2017-04-16] MEDS: NORVASC PO SCH (11:07)
[2017-04-16] MEDS: LEVAQUIN 250MG/50ML 250 MG/50 ML BAG IV SCH (11:08)
--- NOTE | 2017-04-16 15:41 | XRay Report ---
KUB. History: The patient was scheduled for a small bowel series status post colonoscopy, but the patient refused. Findings: A moderate amount of gas is seen throughout the large and small bowel, consistent with post-endoscopy findings. No mass effect is seen. Surgical clips are noted in the right upper quadrant. No significant bony findings are seen. Impression: No significant findings.
[2017-04-16] MEDS ORDERED: APRESOLINE IV PRN (16:41)
[2017-04-17] MEDS: DILAUDID IV PRN ×3 (00:07→14:39)
[2017-04-17] MEDS: APRESOLINE PO SCH ×2 (01:17→14:43)
[2017-04-17 05:28] LABS: Calcium 8.2 mg/dL (8.4-10.2); Chloride 100.8 mmol/L (98-107); Potassium 3.6 mmol/L (3.6-5.0)
[2017-04-17] MEDS: FLAGYL 500 MG/100 ML 500 MG/100 ML BAG IV SCH (05:54)
[2017-04-17] MEDS: NACL 0.45% 1000 ML 1,000 ML IV SCH (05:55)
--- NOTE | 2017-04-17 08:59 | Discharge Summary ---
Providers - Providers Date of Admission: 04/14/17 05:49 Attending physician: CEE DOMINGUEZ MD 04/14/17 07:42 Consult to Physician [CONS] Routine Consulting Provider: ROSA MOHR Reason For Exam: RAGHAVENDRA ON CKD Place consult to:: nephrology Notified:: y Was contact made?: Yes If yes, spoke with:: alba/regino Time called:: 08:05 04/15/17 08:42 Consult to Physician [CONS] Routine Consulting Provider: BRYCE PASTRANA Reason For Exam: abdominal pain-recurrent Place consult to:: dr. pastrana Notified:: office Phone number called:: [phone] Was contact made?: Yes If yes, spoke with:: juhi Time called:: 09:22 Primary care physician: FARNAZ HAMILTON Hospitalization Reason for admission: abdominal pain Condition: Stable Hospital course: 31-year-old woman with a history of hypertension, asthma, colitis comes to emergency room with complaints of abdominal pain that started 1 week ago. Abdominal pain is located in the mid abdomen which she describes as a sharp pain , constant, intensity 7/10, radiating to the back, cannot identify exacerbating or relieving factors. She admits to nausea and vomiting 1 week, no diarrhea. She had menstrual flow to 1 week ago, then had 2 days of vaginal bleed 2 days ago. Patient was treated with antibiotics for enteritis, considering the duration GI was consulted, colonoscopy was negative, SBS was normal. Patient was also noted to have RAGHAVENDRA on CKD and renal was consulted. Losartan was held and renal improved to 2.9. 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 Patient was advised against nephrotoxic medications and should follow with GI and Nephrology. she reports loosing 60 pounds and will like referal to breast surgeon for breast reduction evaluation and also to Bariatric surgeon. This was done. Bentyl was prescribed for functional bowel. Auto immune work up are pending, ANCA was negative in the past. patient to follow with PCP for continued work up. BP medications were adjusted and patient advised to keep a BP diary to discuss with PCP Discharge diagnosis Peritoneal irritation likely secondary to enteritis Intractable nausea vomiting Acute kidney injury on chronic kidney disease stage III Hypokalemia/Hypomagenesemia Morbid Obesity Anemia likely microcytic Hypertensive urgency Disposition: DC-01 TO HOME OR SELFCARE Time spent for discharge: 35 mins Core Measure Documentation - Palliative Care Palliative Care/ Comfort Measures: Not Applicable - Core Measures Any of the following diagnoses?: none - VTE Discharge Requirements Deep Vein Thrombosis/Pulmonary Embolism Present on Admission: No Exam - Physical Exam Narrative exam: VITAL SIGNS: Reviewed. GENERAL: The patient appeared well nourished and normally developed. Vital signs as documented. HEAD: No signs of head trauma. EYES: Pupils are equal. Extraocular motions intact. EARS: Hearing grossly intact. MOUTH: Oropharynx is normal. NECK: No adenopathy, no JVD. CHEST: Chest with clear breath sounds bilaterally. No wheezes, rales, or rhonchi. CARDIAC: Regular rate and rhythm. S1 and S2, without murmurs, gallops, or rubs. VASCULAR: No Edema. Peripheral pulses normal and equal in all extremities. ABDOMEN: Soft, tender. No sign of distention. No rebound or guarding, and no masses palpated. Bowel Sounds normal. MUSCULOSKELETAL: Good range of motion of all major joints. Extremities without clubbing, cyanosis or edema. NEUROLOGIC EXAM: Alert and oriented x 3. No focal sensory or strength deficits. Speech normal. Follows commands. PSYCHIATRIC: Mood normal. SKIN: No rash or lesions. - Constitutional Vitals: Temp Pulse Resp BP Pulse Ox 98.7 F 95 H 20 172/105 96 04/17/17 07:38 04/17/17 07:38 04/17/17 07:38 04/17/17 07:38 04/17/17 07:38 Plan Activity: advance as tolerated, fall precautions Diet: low cholesterol Special Instructions: record daily weights, record daily BP diary Follow up with: PRIMARY CARE, [Referring] - 3-5 Days LICHA ALEXANDER MD [Staff Physician] - 7 Days SETH ALEJO MD [Staff Physician] - 7 Days BRYCE PASTRANA MD [Staff Physician] - 7 Days ROSA MOHR MD [Staff Physician] - 7 Days Prescriptions: amLODIPine [Norvasc] 10 mg PO DAILY #30 tablet Carvedilol [Coreg] 25 mg PO BID #60 tablet Dicyclomine [Bentyl] 10 mg PO QID #30 capsule hydrALAZINE [Apresoline TAB] 100 mg PO Q8H #30 tab Tramadol HCl/Acetaminophen [Ultracet] 1 each PO Q8H #14 tablet
[2017-04-17 09:15] LABS: Myeloperoxidase Antibody <1.0 AI (<1.0)
[2017-04-17] MEDS ORDERED: LEVAQUIN PO SCH (10:00)
--- NOTE | 2017-04-17 13:24 | Fluoroscopy Report ---
FLUOROSCOPIC SMALL BOWEL SERIES: 04/17/17 07:37:00 CLINICAL: Abdominal pain and abnormal small bowel on recent CT. COMPARISON: CT abdomen and pelvis 04/14/17 FINDINGS: A linux systems engineer view of the abdomen demonstrated a normal bowel gas pattern. The patient ingested approximately 20 ounces of thin barium and serial images were obtained. Small bowel transit time was it is within normal limits with barium identified in the colon at 2 hours, 30 minutes. Normal small bowel mucosa with no mass, stricture or ulcer identified. The small bowel was examined fluoroscopically and a spot image of a normal terminal ileum was obtained. IMPRESSION: Normal study.
[2017-04-17] MEDS ORDERED: FLAGYL PO SCH (14:00)
[2017-04-17] MEDS: NORVASC PO SCH (14:42)
[2017-04-17] MEDS: LOPRESSOR PO SCH (14:51)
[2017-04-17 17:10] VITALS: BP 136/76
== END 2017-04-17 20:56 | disposition home or self-care (01) | DRG 682 ==
LOC: ED 21:37 → CC1 04-14 05:49 → 3A 04-14 09:17
PROVIDERS: ADMIT Internal Medicine; ATTEND Internal Medicine
PROC: 0DJD8ZZ Inspection of Lower Intestinal Tract, Via Natural or Artificial Opening Endoscopic (ICD-10-PCS; principal; 2017-04-16)
DX: N17.9 Acute kidney failure, unspecified (principal); K65.9 Peritonitis, unspecified; K52.9 Noninfective gastroenteritis and colitis, unspecified; E86.0 Dehydration; I16.0 Hypertensive urgency; J45.909 Unspecified asthma, uncomplicated; E87.6 Hypokalemia; N18.3 Chronic kidney disease, stage 3 (moderate); M19.90 Unspecified osteoarthritis, unspecified site; Z90.49 Acquired absence of other specified parts of digestive tract; Z98.51 Tubal ligation status; Z82.49 Family history of ischemic heart disease and other diseases of the circulatory system; Z79.899 Other long term (current) drug therapy; D50.9 Iron deficiency anemia, unspecified; E66.01 Morbid (severe) obesity due to excess calories; Z68.42 Body mass index [BMI] 45.0-49.9, adult
CPT/HCPCS: 36415; 74000; 74176; 74250; 80048; 80053; 81001; 81025; 82550; 82570; 82728; 83550; 83690; 83735; 84156; 84300; 85025; 85613; 85652; 86021; 86140; 86235; 93005; 93010; 93306; 96361; 96374; 96375; J0360; J1170; J1650; J1956; J2270; J2405; J2704; J3475; J3480; J7030